=== PATIENT | male | born 1955 | race Caucasian/White ===

== ENCOUNTER 2020-10-24 01:54 | Inpatient (IN) | payer OTHER ==
[2020-10-24] MEDS ORDERED: SUBLIMAZE 100 MCG/2 ML IV ONE (02:15)
[2020-10-24] MEDS ORDERED: Zofran 4 MG/2 ML VIAL IV ONE (02:15)
[2020-10-24] MEDS ORDERED: Zofran 4 MG/2 ML VIAL ONE (02:19)
[2020-10-24] MEDS ORDERED: SUBLIMAZE 100 MCG/2 ML ONE ×4 (02:20→15:05)
[2020-10-24 02:23] LABS: Absolute Neutrophil Ct (ANC) 15.92 (1.4-6.9); BASOPHIL % 0.1 % (0.0-0.4); Basophil (Absolute #) 0.02 (0-0.4); Eosinophil % 0.1 % (0.00-5.0); Eosinophil (Absolute #) 0.01 (0-0.5); Hematocrit 42.5 % (42-50); Hemoglobin 14.3 gm/dl (12.5-18.0); Lymphocytes % 7.2 % (24.0-44.0); Mean Cell Volume 91.2 fl (78-100); Mean Corpuscular Hemoglobin 30.7 pg (26-32); Mean Corpuscular Hgb Concent. 33.6 g/dl (32-36); Monocyte (Absolute #) 2.05 (0.0-1.3); Monocytes % 10.6 % (0.0-12.0); Platelet Count 286 K/mm3 (150-450); Red Blood Count 4.66 M/mm3 (4.1-5.6); Red Cell Distribution Width 12.5 % (11.5-14.0); White Blood Count 19.4 K/mm3 (4.0-10.5)
--- NOTE | 2020-10-24 02:40 | ERPHSYRPT ---
- History of Present Illness Historian: patient Exam Limitations: no limitations Patient Subjective Stated Complaint: pt states, "I'm having terrible abdominal pain since Wednesday and it's just gotten worse. I thought maybe I was constipated but I've taken stuff and did not get alot out". Triage Nursing Assessment: pt c/o abd pain all the way across his belly, but initially started as pain to RLQ. Pt was very bloated on Wednesday but the pain has gotten much worse. Pt took suppositories, 2 small enemas and miralax with very little relief. Pt has just a few faint scattered bs. Abd is distended, slightly firm. Physician History: 65 yo wm w diffuse abdominal pain x 1.5 days.Pain is 10 on scale and sharp. Pt has had some nausea and hard stool but denies vomiting/fever/dysuria/hematuria/chest pain/fever/cough. He has never had this pain before and has only had his gallbladder out. Timing/Duration: other (36 hours) Quality: sharpness Abdominal Pain Onset Location: generalized abdomen Pain Radiation: no radiation Severity of Pain-Max: severe Severity of Pain-Current: severe Modifying Factors: Improves With: nothing Associated Symptoms: loss of appetite, nausea, vomiting, No back, No chest pain, No diaphoresis, No diarrhea, No fever/chills, No fatigue, No headache, No heartburn, No neck pain, No rash, No shortness of breath, No syncope, No weakness Previous symptoms: no prior history Allergies/Adverse Reactions: No Known Drug Allergies Allergy (Unverified 10/24/20 02:20) Home Medications: Atorvastatin Calcium 20 mg PO DAILY 10/24/20 [History] Esomeprazole Magnesium [Nexium] 40 mg PO DAILY 10/24/20 [History] Metformin HCl [Glucophage] 1,000 mg PO BID 10/24/20 [History] Naproxen Sodium [Aleve] 440 mg PO DAILY 10/24/20 [History] lisinopriL [Lisinopril] 20 mg PO DAILY 10/24/20 [History] Hx Tetanus, Diphtheria Vaccination/Date Given: Yes Hx Influenza Vaccination/Date Given: No Hx Pneumococcal Vaccination/Date Given: No Immunizations Up to Date: Yes Travel Risk - International Travel Have you traveled outside of the country in past 3 weeks: No - Coronavirus Screening Are you exhibiting any of the following symptoms?: No Close contact with a COVID-19 positive Pt in past 14-21 Days: No - Vaccine Status Have you recieved a Covid-19 vaccination: Yes [employer]: [employer] - Review of Systems Constitutional: No Symptoms Eyes: No Symptoms Ears, Nose, & Throat: No Symptoms Respiratory: No Symptoms Cardiac: No Symptoms Abdominal/Gastrointestinal: No Symptoms, Abdominal Pain, Nausea, Constipation Genitourinary Symptoms: No Symptoms Musculoskeletal: No Symptoms Skin: No Symptoms Neurological: No Symptoms Psychological: No Symptoms Endocrine: No Symptoms Hematologic/Lymphatic: No Symptoms Immunological/Allergic: Pollen Allergy - Past Medical History Pertinent Past Medical History: Yes Neurological History: No Pertinent History ENT History: No Pertinent History Cardiac History: Hypertension Respiratory History: No Pertinent History Endocrine Medical History: Diabetes Type II Musculoskeletal History: Fractures GI Medical History: GERD, Gallbladder Disease History: No Pertinent History Psycho-Social History: No Pertinent History Male Reproductive Disorders: No Pertinent History - Past Surgical History Past Surgical History: Yes Neuro Surgical History: No Pertinent History Cardiac: No Pertinent History Respiratory: No Pertinent History Gastrointestinal: Cholecystectomy Genitourinary: No Pertinent History Musculoskeletal: No Pertinent History Male Surgical History: No Pertinent History - Social History Smoking Status: Never smoker Exposure to second hand smoke: No Drug Use: none Patient Lives Alone: No Significant Family History: no pertinent family hx - Nursing Vital Signs Nursing Vital Signs: Initial Vital Signs Temperature 97.8 F 10/24/20 02:00 Pulse Rate 86 10/24/20 02:00 Respiratory Rate 20 10/24/20 02:00 Blood Pressure 180/103 10/24/20 02:00 O2 Sat by Pulse Oximetry 96 10/24/20 02:00 Pain Scale Pain Intensity 4 - Physical Exam SpO2: 96 Ordered Tests: Active Orders 24 hr Category Date Time Status Bedrest ROUTINE Activity 10/24/20 06:43 Active Code Status Order ROUTINE Care 10/24/20 06:43 Active EKG-ER Only STAT Care 10/24/20 02:13 Active IV Care Q6H Care 10/24/20 06:43 Active IV Insertion STAT Care 10/24/20 02:[address] in Observation ROUTINE Care 10/24/20 06:43 Active Vital Signs Q4H Care 10/24/20 06:42 Active NPO Diet 10/24/20 06:43 Active ABDOMEN AND PELVIS W CONTRAST [CT] Stat Exams 10/24/20 03:10 Taken AMYLASE Stat Lab 10/24/20 02:19 Completed CBC W DIFF Stat Lab 10/24/20 02:19 Completed CMP Stat Lab 10/24/20 02:19 Completed LIPASE Stat Lab 10/24/20 02:19 Completed TROPONIN Q3H Lab 10/24/20 02:19 Completed UA W/RFX UR CULTURE Stat Lab 10/24/20 03:39 Completed Oxygen Nasal Cannula 2 lpm RT 10/24/20 06:42 Active Transfer Order Routine Transfer 10/24/20 Ordered Medication Summary Generic Name Dose Route Start Last Admin Trade Name Freq PRN Reason Stop Dose Admin Hydromorphone HCl 0.5 mg 10/24/20 06:42 Hydromorphone 1 Mg/Ml Injection IV 10/29/20 06:41 Q1H PRN PRN PAIN Piperacillin Sod/Tazobactam 100 mls @ 200 mls/hr 10/24/20 06:29 10/24/20 06:36 Sod 3.375 gm/ Sodium Chloride IV 10/24/20 06:58 200 mls/hr STAT ONE Administration Sodium Chloride 1,000 mls @ 100 mls/hr 10/24/20 06:45 Sodium Chloride 0.9% 1000 Ml IV 11/23/20 06:44 .Q10H ANASTACIA Ondansetron HCl 4 mg 10/24/20 06:42 Zofran 4 Mg/2 Ml Vial IV 11/23/20 06:41 Q6H PRN PRN NAUSEA/VOMITING Pantoprazole Sodium 40 mg 10/24/20 10:00 Protonix 40 Mg Iv IV 11/23/20 09:59 Q24H10 ANASTACIA Discontinued Medications Generic Name Dose Route Start Last Admin Trade Name Freq PRN Reason Stop Dose Admin Fentanyl Citrate 50 mcg 10/24/20 02:15 10/24/20 02:24 Sublimaze 100 Mcg/2 Ml IV 10/24/20 02:16 50 mcg STAT ONE Administration Fentanyl Citrate Confirm 10/24/20 02:20 Sublimaze 100 Mcg/2 Ml Administered 10/24/20 02:21 Dose 100 mcg .ROUTE .STK-MED ONE Hydromorphone HCl 1 mg 10/24/20 03:02 10/24/20 03:07 Hydromorphone 1 Mg/Ml Injection IV 10/24/20 03:03 1 mg STAT ONE Administration Hydromorphone HCl Confirm 10/24/20 03:05 Hydromorphone 1 Mg/Ml Injection Administered 10/24/20 03:06 Dose 1 mg .ROUTE .STK-MED ONE Sodium Chloride Confirm 10/24/20 06:31 Sodium Chloride 100ml Mini-Bag Plus Administered 10/24/20 06:32 Dose 100 mls @ ud IV .STK-MED ONE Ondansetron HCl 4 mg 10/24/20 02:15 10/24/20 02:24 Zofran 4 Mg/2 Ml Vial IV 10/24/20 02:16 4 mg STAT ONE Administration Ondansetron HCl Confirm 10/24/20 02:19 Zofran 4 Mg/2 Ml Vial Administered 10/24/20 02:20 Dose 4 mg .ROUTE .STK-MED ONE Piperacillin Sod/Tazobactam Sod Confirm 10/24/20 06:31 Zosyn 3.375 Gm Vial Administered 10/24/20 06:32 Dose 3.375 gm IV .STK-MED ONE Lab/Rad Data: Laboratory Result Diagrams 10/24/20 02:19 10/24/20 02:19 Laboratory Results 10/24/20 10/24/20 10/24/20 Range/Units 03:39 02:19 02:19 WBC (4.0-10.5) K/mm3 RBC (4.1-5.6) M/mm3 Hgb (12.5-18.0) gm/dl Hct (42-50) % MCV (78-100) fl MCH (26-32) pg MCHC (32-36) g/dl RDW (11.5-14.0) % Plt Count (150-450) K/mm3 MPV (7.5-11.0) fl Gran % (36.0-66.0) % Eos # (Auto) (0-0.5) Absolute Lymphs (auto) (1.0-4.6) Absolute Monos (auto) (0.0-1.3) Lymphocytes % (24.0-44.0) % Monocytes % (0.0-12.0) % Eosinophils % (0.00-5.0) % Basophils % (0.0-0.4) % Absolute Granulocytes (1.4-6.9) Basophils # (0-0.4) Sodium 134 L (137-145) mmol/L Potassium 3.7 (3.5-5.1) mmol/L Chloride 98 (98-107) mmol/L Carbon Dioxide 24 (22-30) mmol/L Anion Gap 15.6 H (5-15) MEQ/L BUN 14 (9-20) mg/dL Creatinine 0.71 (0.66-1.25) mg/dL Estimated GFR > 60.0 ML/MIN Glucose 256 H (74-106) mg/dL Calcium 9.4 (8.4-10.2) mg/dL Total Bilirubin 1.00 (0.2-1.3) mg/dL AST 20 (17-59) U/L ALT 19 (0-50) U/L Alkaline Phosphatase 73 (38-126) U/L Troponin I < 0.012 (0.000-0.034) ng/mL Serum Total Protein 7.6 (6.3-8.2) g/dL Albumin 4.5 (3.5-5.0) g/dL Amylase 65 (30-110) U/L Lipase 89 (23-300) U/L Urine Color YELLOW (YELLOW) Urine Appearance SLIGHTLY CLOUDY (CLEAR) Urine pH 5.0 (5-6) Ur Specific [place] 1.037 (1.005-1.025) Urine Protein 30 (Negative) Urine Ketones MODERATE (NEGATIVE) Urine Blood NEGATIVE (0-5) Andrey/ul Urine Nitrite NEGATIVE (NEGATIVE) Urine Bilirubin NEGATIVE (NEGATIVE) Urine Urobilinogen NEGATIVE (0-1) mg/dL Ur Leukocyte Esterase NEGATIVE (NEGATIVE) Urine WBC (Auto) 3-5 (0-5) /HPF Urine RBC (Auto) NONE (0-2) /HPF U Epithel Cells (Auto) NONE (FEW) /HPF Urine Bacteria (Auto) NONE SEEN (NEGATIVE) /HPF Urine Mucus (Auto) MODERATE (NEGATIVE) /HPF Urine Culture Reflexed NO (NO) Urine Glucose >=500 (NEGATIVE) mg/dL 10/24/20 Range/Units 02:19 WBC 19.4 H (4.0-10.5) K/mm3 RBC 4.66 (4.1-5.6) M/mm3 Hgb 14.3 (12.5-18.0) gm/dl Hct 42.5 (42-50) % MCV 91.2 (78-100) fl MCH 30.7 (26-32) pg MCHC 33.6 (32-36) g/dl RDW 12.5 (11.5-14.0) % Plt Count 286 (150-450) K/mm3 MPV 10.0 (7.5-11.0) fl Gran % 82.0 H (36.0-66.0) % Eos # (Auto) 0.01 (0-0.5) Absolute Lymphs (auto) 1.40 (1.0-4.6) Absolute Monos (auto) 2.05 H (0.0-1.3) Lymphocytes % 7.2 L (24.0-44.0) % Monocytes % 10.6 (0.0-12.0) % Eosinophils % 0.1 (0.00-5.0) % Basophils % 0.1 (0.0-0.4) % Absolute Granulocytes 15.92 H (1.4-6.9) Basophils # 0.02 (0-0.4) Sodium (137-145) mmol/L Potassium (3.5-5.1) mmol/L Chloride (98-107) mmol/L Carbon Dioxide (22-30) mmol/L Anion Gap (5-15) MEQ/L BUN (9-20) mg/dL Creatinine (0.66-1.25) mg/dL Estimated GFR ML/MIN Glucose (74-106) mg/dL Calcium (8.4-10.2) mg/dL Total Bilirubin (0.2-1.3) mg/dL AST (17-59) U/L ALT (0-50) U/L Alkaline Phosphatase (38-126) U/L Troponin I (0.000-0.034) ng/mL Serum Total Protein (6.3-8.2) g/dL Albumin (3.5-5.0) g/dL Amylase (30-110) U/L Lipase (23-300) U/L Urine Color (YELLOW) Urine Appearance (CLEAR) Urine pH (5-6) Ur Specific [place] (1.005-1.025) Urine Protein (Negative) Urine Ketones (NEGATIVE) Urine Blood (0-5) Andrey/ul Urine Nitrite (NEGATIVE) Urine Bilirubin (NEGATIVE) Urine Urobilinogen (0-1) mg/dL Ur Leukocyte Esterase (NEGATIVE) Urine WBC (Auto) (0-5) /HPF Urine RBC (Auto) (0-2) /HPF U Epithel Cells (Auto) (FEW) /HPF Urine Bacteria (Auto) (NEGATIVE) /HPF Urine Mucus (Auto) (NEGATIVE) /HPF Urine Culture Reflexed (NO) Urine Glucose (NEGATIVE) mg/dL - Progress Progress Note: 10/24/20 06:[address] Avilez to Hospitalist 3.375mg IV Zosyn 10/24/20 06:38 10/24/20 06:39 Dr. Wu accepted admit [id number]/4mg IV Zofran w improvement in pain Dilaudid 1mg IV Discussed with DrZakiya: Angel Barrientos Counseled pt/family regarding: lab results, diagnosis, rad results - Departure Departure Disposition: Observation Clinical Impression: Acute appendicitis Condition: Stable Critical Care Time: No Referrals: MAREK WU MD [Primary Care Provider] -
[2020-10-24 02:42] LABS: ALBUMIN 4.5 g/dL (3.5-5.0); ALKALINE PHOSPHATASE 73 U/L (38-126); AMYLASE 65 U/L (30-110); ANION GAP 15.6 MEQ/L (5-15); BLOOD UREA NITROGEN 14 mg/dL (9-20); CHLORIDE 98 mmol/L (98-107); Calcium 9.4 mg/dL (8.4-10.2); Carbon Dioxide 24 mmol/L (22-30); Creatinine 1 0.71 mg/dL (0.66-1.25); EST GLOMERULAR FILTRATION RATE > 60.0 ML/MIN; Glucose 256 mg/dL (74-106); LIPASE 89 U/L (23-300); Potassium 3.7 mmol/L (3.5-5.1); SGOT/AST 20 U/L (17-59); SGPT/ALT 19 U/L (0-50); SODIUM 134 mmol/L (137-145); Total Protein 7.6 g/dL (6.3-8.2)
[2020-10-24] MEDS ORDERED: Hydromorphone 1 mg/ml Injection IV ONE ×2 (03:02→07:13)
[2020-10-24] MEDS ORDERED: Hydromorphone 1 mg/ml Injection ONE (03:05)
[2020-10-24 03:48] LABS: Appearance SLIGHTLY CLOUDY (CLEAR); Bilirubin NEGATIVE (NEGATIVE); Blood NEGATIVE Ery/ul (0-5); Glucose >=500 mg/dL (NEGATIVE); Ketones MODERATE (NEGATIVE); Leukocyte Esterase NEGATIVE (NEGATIVE); Mucus MODERATE /HPF (NEGATIVE); Nitrite NEGATIVE (NEGATIVE); Protein,Urine Dip 30 (Negative); Specific Gravity 1.037 (1.005-1.025); Urobilinogen NEGATIVE mg/dL (0-1)
[2020-10-24 03:58] LABS: Bacteria NONE SEEN /HPF (NEGATIVE)
[2020-10-24] MEDS ORDERED: Zosyn 3.375 GM Vial 3.375 GM in Sodium Chloride 100ML MINI-BAG PLUS 100 ML IV ONE (06:29)
[2020-10-24] MEDS ORDERED: Zosyn 3.375 GM Vial IV ONE (06:31)
[2020-10-24] MEDS ORDERED: Sodium Chloride 100ML MINI-BAG PLUS 100 ML IV ONE (06:31)
[2020-10-24] MEDS ORDERED: Sodium Chloride 0.9% 1000 ML 1,000 ML IV SCH (06:45)
[2020-10-24 08:02] LABS: INFLUENZA A NEGATIVE (NEGATIVE); INFLUENZA B NEGATIVE (NEGATIVE); RESPIRATORY SYNCTIAL VIRUS NEGATIVE (Negative)
[2020-10-24] MEDS: Hydromorphone 1 mg/ml Injection IV PRN ×3 (09:32→23:17)
[2020-10-24] MEDS: PROTONIX 40 MG IV IV SCH (09:35)
--- NOTE | 2020-10-24 09:55 | XRAY ---
Indication: Right lower quadrant pain. Elevated WBC. Multiple contiguous axial images obtained through the abdomen and pelvis using 77 cc Isovue 370 contrast. Comparison: None Lung bases demonstrates moderate subsegmental atelectasis/scarring bilaterally. Heart borderline enlarged. Moderate size hiatal hernia. Noncontrasted stomach and bowel loops appear nonobstructed. Abnormally distended appendix up to 2.5 cm in diameter with peripancreatic stranding favoring acute appendicitis. Incidental 1.4 cm appendicolith. Tiny right perihepatic, paracolic, and pelvic free fluid presumed reactive. No walled off fluid collection or free air. Previous cholecystectomy. Small 1 cm left upper renal cyst. Enlarged prostate gland. Remaining liver, pancreas, spleen, adrenal glands, kidneys, ureters, and bladder are unremarkable. Mild scattered aortoiliac calcifications. No AAA or pathologic retroperitoneal lymphadenopathy. Osseous structures intact with mild multilevel thoracolumbar degenerative spondylosis. Impression: 1. CT findings as detailed favoring acute appendicitis. Tiny reactive free fluid but no walled off fluid collection or free air. 2. Incidental hiatal hernia, left renal cyst, enlarged prostate gland, and chronic bony findings. Comment: Preliminary interpretation was made by [facility]. No critical discrepancy.
[2020-10-24] MEDS ORDERED: MEFOXIN 2 GM PREMIX** 2 GM/50 ML ML IV SCH (11:00)
[2020-10-24] MEDS: HUMALOG SQ PRN ×2 (11:24→20:41)
[2020-10-24] MEDS: Sodium Chloride 0.9% 1000 ML 1,000 ML IV SCH ×2 (11:41→16:20)
[2020-10-24] MEDS ORDERED: DIPRIVAN 200 MG/20 ML IV ONE (12:03)
[2020-10-24] MEDS ORDERED: Versed 2 MG/2 ML Injection ONE (12:03)
[2020-10-24] MEDS ORDERED: Quelicin Fliptop 200 MG/10 ML ONE (12:07)
[2020-10-24] MEDS: HOLD METFORMIN PRODUCTS FOR 48 HOURS MC SCH (12:26)
[2020-10-24] MEDS: Zestril 20 MG PO SCH (12:27)
--- NOTE | 2020-10-24 12:29 | PCM.HP ---
History of Present Illness - Chief Complaint Chief Complaint: Appendisitis History of Present Illness: is a 65 year old male who presented to the ER this morning, he reports onset of abdominal pain 2 days ago, felt distended and constipated so tried an enema with some results but his abdominal pain has progressed and worsened, there has been no vomiting, no fever, no diarrhea or hematochezia. His pain in the abdomen is diffuse but worst in the RLQ. - Review of Systems Constitutional: No Fever, No Chills Respiratory: No Cough, No Short Of Breath Cardiac: No Chest Pain, No Edema, No Syncope Abdominal/Gastrointestinal: Abdominal Pain Genitourinary Symptoms: No Dysuria All Other Systems: Reviewed and Negative Medications & Allergies Home Medications: Home Medication List Atorvastatin Calcium 20 mg PO DAILY 10/24/20 [History Confirmed 10/24/20] Esomeprazole Magnesium [Nexium] 40 mg PO DAILY 10/24/20 [History Confirmed 10/24/20] Metformin HCl [Glucophage] 1,000 mg PO BID 10/24/20 [History Confirmed 10/24/20] Naproxen Sodium [Aleve] 440 mg PO BID 10/24/20 [History Confirmed 10/24/20] lisinopriL [Lisinopril] 20 mg PO DAILY 10/24/20 [History Confirmed 10/24/20] Allergies/Adverse Reactions: Allergies Allergy/AdvReac Type Severity Reaction Status Date / Time No Known Drug Allergies Allergy Unverified 10/24/20 09:03 - Past Medical History Past Medical History: Yes Neurological History: No Pertinent History ENT History: No Pertinent History Cardiac History: Hypertension Respiratory History: No Pertinent History Endocrine Medical History: Diabetes Type II Musculoskelatal History: Fractures GI Medical History: GERD, Gallbladder Disease History: No Pertinent History Pyscho-Social History: No Pertinent History Male Reproductive Disorders: No Pertinent History - Past Surgical History Past Surgical History: Yes Neuro Surgical History: No Pertinent History Cardiac History: No Pertinent History Respiratory Surgery: No Pertinent History GI Surgical History: Cholecystectomy Genitourinary Surgical Hx: No Pertinent History Musculskeletal Surgical Hx: No Pertinent History Male Surgical History: No Pertinent History - Social History Smoking Status: Never smoker Exposure to second hand smoke: No Alcohol: Rarely Drug Use: none Significant Family History: no pertinent family hx - Physical Exam Vital Signs: Vital Signs - 24 hr Temp Pulse Resp BP BP Pulse Ox 05/20/21 11:25 98.9 F 101 H 20 143/78 93 L 10/24/20 11:00 98.9 F 101 H 14 143/78 93 L 10/24/20 09:28 98.9 F 101 H 20 143/78 93 L 10/24/20 08:55 98.5 F 97 H 20 136/82 96 10/24/20 07:18 107 H 16 149/88 95 10/24/20 07:00 99.1 F 105 H 16 165/92 96 10/24/20 06:49 96 10/24/20 06:16 105 H 18 165/92 93 L 10/24/20 04:00 84 18 142/80 95 10/24/20 03:00 82 18 172/93 95 10/24/20 02:00 97.8 F 86 20 180/103 96 General Appearance: no apparent distress Neurologic Exam: alert, oriented x 3, cooperative, normal mood/affect, nml cerebellar function, nml station & gait, sensation nml, No motor deficits Respiratory Exam: normal breath sounds, lungs clear, No respiratory distress Cardiovascular Exam: regular rate/rhythm, normal heart sounds, normal peripheral pulses Gastrointestinal/Abdomen Exam: tenderness, distention, guarding Extremity Exam: normal inspection, normal range of motion, pelvis stable Skin Exam: normal color, warm, dry, No rash Results - Labs Lab/Micro Results: Lab Results-Last 24 Hours 10/24/20 10/24/20 10/24/20 Range/Units 02:19 02:19 02:19 WBC 19.4 H (4.0-10.5) K/mm3 RBC 4.66 (4.1-5.6) M/mm3 Hgb 14.3 (12.5-18.0) gm/dl Hct 42.5 (42-50) % MCV 91.2 (78-100) fl MCH 30.7 (26-32) pg MCHC 33.6 (32-36) g/dl RDW 12.5 (11.5-14.0) % Plt Count 286 (150-450) K/mm3 MPV 10.0 (7.5-11.0) fl Gran % 82.0 H (36.0-66.0) % Eos # (Auto) 0.01 (0-0.5) Absolute Lymphs (auto) 1.40 (1.0-4.6) Absolute Monos (auto) 2.05 H (0.0-1.3) Lymphocytes % 7.2 L (24.0-44.0) % Monocytes % 10.6 (0.0-12.0) % Eosinophils % 0.1 (0.00-5.0) % Basophils % 0.1 (0.0-0.4) % Absolute Granulocytes 15.92 H (1.4-6.9) Basophils # 0.02 (0-0.4) Sodium 134 L (137-145) mmol/L Potassium 3.7 (3.5-5.1) mmol/L Chloride 98 (98-107) mmol/L Carbon Dioxide 24 (22-30) mmol/L Anion Gap 15.6 H (5-15) MEQ/L BUN 14 (9-20) mg/dL Creatinine 0.71 (0.66-1.25) mg/dL Estimated GFR > 60.0 ML/MIN Glucose 256 H (74-106) mg/dL Calcium 9.4 (8.4-10.2) mg/dL Total Bilirubin 1.00 (0.2-1.3) mg/dL AST 20 (17-59) U/L ALT 19 (0-50) U/L Alkaline Phosphatase 73 (38-126) U/L Troponin I < 0.012 (0.000-0.034) ng/mL Serum Total Protein 7.6 (6.3-8.2) g/dL Albumin 4.5 (3.5-5.0) g/dL Amylase 65 (30-110) U/L Lipase 89 (23-300) U/L Urine Color (YELLOW) Urine Appearance (CLEAR) Urine pH (5-6) Ur Specific [place] (1.005-1.025) Urine Protein (Negative) Urine Ketones (NEGATIVE) Urine Blood (0-5) Andrey/ul Urine Nitrite (NEGATIVE) Urine Bilirubin (NEGATIVE) Urine Urobilinogen (0-1) mg/dL Ur Leukocyte Esterase (NEGATIVE) Urine WBC (Auto) (0-5) /HPF Urine RBC (Auto) (0-2) /HPF U Epithel Cells (Auto) (FEW) /HPF Urine Bacteria (Auto) (NEGATIVE) /HPF Urine Mucus (Auto) (NEGATIVE) /HPF Urine Culture Reflexed (NO) Urine Glucose (NEGATIVE) mg/dL Influenza Type A Ag (NEGATIVE) Influenza Type B Ag (NEGATIVE) RSV (PCR) (Negative) SARS-CoV-2 (PCR) (NEGATIVE) 10/24/20 10/24/20 Range/Units 03:39 07:21 WBC (4.0-10.5) K/mm3 RBC (4.1-5.6) M/mm3 Hgb (12.5-18.0) gm/dl Hct (42-50) % MCV (78-100) fl MCH (26-32) pg MCHC (32-36) g/dl RDW (11.5-14.0) % Plt Count (150-450) K/mm3 MPV (7.5-11.0) fl Gran % (36.0-66.0) % Eos # (Auto) (0-0.5) Absolute Lymphs (auto) (1.0-4.6) Absolute Monos (auto) (0.0-1.3) Lymphocytes % (24.0-44.0) % Monocytes % (0.0-12.0) % Eosinophils % (0.00-5.0) % Basophils % (0.0-0.4) % Absolute Granulocytes (1.4-6.9) Basophils # (0-0.4) Sodium (137-145) mmol/L Potassium (3.5-5.1) mmol/L Chloride (98-107) mmol/L Carbon Dioxide (22-30) mmol/L Anion Gap (5-15) MEQ/L BUN (9-20) mg/dL Creatinine (0.66-1.25) mg/dL Estimated GFR ML/MIN Glucose (74-106) mg/dL Calcium (8.4-10.2) mg/dL Total Bilirubin (0.2-1.3) mg/dL AST (17-59) U/L ALT (0-50) U/L Alkaline Phosphatase (38-126) U/L Troponin I (0.000-0.034) ng/mL Serum Total Protein (6.3-8.2) g/dL Albumin (3.5-5.0) g/dL Amylase (30-110) U/L Lipase (23-300) U/L Urine Color YELLOW (YELLOW) Urine Appearance SLIGHTLY CLOUDY (CLEAR) Urine pH 5.0 (5-6) Ur Specific [place] 1.037 (1.005-1.025) Urine Protein 30 (Negative) Urine Ketones MODERATE (NEGATIVE) Urine Blood NEGATIVE (0-5) Andrey/ul Urine Nitrite NEGATIVE (NEGATIVE) Urine Bilirubin NEGATIVE (NEGATIVE) Urine Urobilinogen NEGATIVE (0-1) mg/dL Ur Leukocyte Esterase NEGATIVE (NEGATIVE) Urine WBC (Auto) 3-5 (0-5) /HPF Urine RBC (Auto) NONE (0-2) /HPF U Epithel Cells (Auto) NONE (FEW) /HPF Urine Bacteria (Auto) NONE SEEN (NEGATIVE) /HPF Urine Mucus (Auto) MODERATE (NEGATIVE) /HPF Urine Culture Reflexed NO (NO) Urine Glucose >=500 (NEGATIVE) mg/dL Influenza Type A Ag NEGATIVE (NEGATIVE) Influenza Type B Ag NEGATIVE (NEGATIVE) RSV (PCR) NEGATIVE (Negative) SARS-CoV-2 (PCR) NEGATIVE (NEGATIVE) - Radiology Impressions Radiology Exams & Impressions: Radiology Procedures Category Date Time Status ABDOMEN AND PELVIS W CONTRAST [CT] Stat Exams 10/24/20 03:10 Completed - Other Procedures and Tests Respiratory Therapy 10/24/20 06:42 Oxygen Nasal Cannula 2 lpm Assessment/Plan (1) Acute appendicitis Current Visit: Yes Status: Acute Assessment & Plan: given Dr German guerrero to take to surgery, based on 2 day history of pain, exam and review of labs and CT discussed possibility of perforation and several days of IV antibiotics with patient and his . Code(s): K35.80 - UNSPECIFIED ACUTE APPENDICITIS
[2020-10-24] MEDS ORDERED: OFIRMEV 100 ML IV ONE (13:00)
[2020-10-24] MEDS ORDERED: Sensorcaine 0.25% 10 ML ONE (13:47)
[2020-10-24] MEDS ORDERED: Zemuron 100 MG/10 ML ONE (14:27)
[2020-10-24] MEDS ORDERED: TRANDATE 20 MG/4 ML SYRINGE IV ONE (14:28)
[2020-10-24] MEDS ORDERED: BRIDION 200MG/2ML IV ONE (15:01)
[2020-10-24] MEDS: Zosyn 3.375 GM Vial 3.375 GM in Sodium Chloride 100ML MINI-BAG PLUS 100 ML IV SCH (17:25)
[2020-10-24] MEDS: Zofran 4 MG/2 ML VIAL IV PRN (19:31)
[2020-10-25] MEDS: Zosyn 3.375 GM Vial 3.375 GM in Sodium Chloride 100ML MINI-BAG PLUS 100 ML IV SCH ×5 (01:09→23:53)
[2020-10-25] MEDS: Hydromorphone 1 mg/ml Injection IV PRN ×9 (02:19→23:11)
[2020-10-25 05:31] LABS: Absolute Neutrophil Ct (ANC) 10.06 (1.4-6.9); BASOPHIL % 0.1 % (0.0-0.4); Basophil (Absolute #) 0.01 (0-0.4); Eosinophil (Absolute #) 0 (0-0.5); Hematocrit 38.5 % (42-50); Hemoglobin 12.3 gm/dl (12.5-18.0); Lymphocyte (Absolute #) 0.59 (1.0-4.6); Lymphocytes % 5.1 % (24.0-44.0); Mean Cell Volume 94.6 fl (78-100); Mean Corpuscular Hemoglobin 30.2 pg (26-32); Mean Corpuscular Hgb Concent. 31.9 g/dl (32-36); Mean Platelet Volume 10.1 fl (7.5-11.0); Monocyte (Absolute #) 0.96 (0.0-1.3); Monocytes % 8.3 % (0.0-12.0); Neutrophil % 86.5 % (36.0-66.0); Platelet Count 236 K/mm3 (150-450); Red Blood Count 4.07 M/mm3 (4.1-5.6); Red Cell Distribution Width 12.9 % (11.5-14.0); White Blood Count 11.6 K/mm3 (4.0-10.5)
[2020-10-25 05:37] LABS: ALBUMIN 3.3 g/dL (3.5-5.0); ALKALINE PHOSPHATASE 47 U/L (38-126); ANION GAP 10.6 MEQ/L (5-15); BLOOD UREA NITROGEN 21 mg/dL (9-20); CHLORIDE 103 mmol/L (98-107); Calcium 7.8 mg/dL (8.4-10.2); Carbon Dioxide 24 mmol/L (22-30); EST GLOMERULAR FILTRATION RATE > 60.0 ML/MIN; Glucose 209 mg/dL (74-106); Potassium 4.1 mmol/L (3.5-5.1); SGOT/AST 15 U/L (17-59); SGPT/ALT 13 U/L (0-50); SODIUM 134 mmol/L (137-145); Total Protein 6.1 g/dL (6.3-8.2)
[2020-10-25] MEDS: Zofran 4 MG/2 ML VIAL IV PRN ×3 (08:21→22:58)
--- NOTE | 2020-10-25 08:26 | PCM.NOTE ---
Date and Time: 10/25/20824 Subjective Assessment: patient is tolerating clear liquids, pain in the stomach is fairly well managed. no specific problems or concerns. Objective Exam General Appearance: no apparent distress Neurologic Exam: alert, oriented x 3 Wound Assessment: Skin/Wound Assessment Wound/Incision Assessment Start: 10/24/20 17:19 Text: Status: Active Freq: Q6H Protocol: Document 10/25/20 07:39 HOLLIE (Rec: 10/25/20 07:41 HOLLIE [id number]) Wound/Incision Assessment Right Upper Abdomen Wound Assessment Shift Assessment Wound Stage Non Pressure Wound Dressing Status Dry & Intact Drainage Amount None Packing Type Gauze Pads Comment surgical wound with dressing CDI and CRISTIAN drain with serosanguanous fluid Wound Photo Photo Taken No Respiratory Exam: normal breath sounds, lungs clear, No respiratory distress Cardiovascular Exam: regular rate/rhythm, normal heart sounds Gastrointestinal/Abdomen Exam: soft, other (dressing c/d/i, serosang fluid in CRISTIAN) OBJECTIVE DATA Vital Signs: Vital Signs - 24 hr Temp Pulse Resp BP Pulse Ox 10/25/20 07:53 97.8 F 92 H 24 153/82 94 L 10/25/20 03:40 98.6 F 93 H 18 131/77 94 L 10/24/20 23:59 97.7 F 93 H 23 130/74 93 L 10/24/20 19:55 97.9 F 94 H 19 115/59 94 L 10/24/20 18:45 98.2 F 93 H 24 159/74 94 L 10/24/20 17:57 100.1 F 88 14 128/66 95 10/24/20 17:15 99.7 F 91 H 16 137/71 95 10/24/20 16:47 100.3 F 10/24/20 16:45 100.4 F 92 H 14 123/62 93 L 10/24/20 16:30 99.9 F 89 131/75 94 L 10/24/20 16:15 98.4 F 93 H 132/76 94 L 10/24/20 11:25 98.9 F 101 H 20 143/78 93 L 10/24/20 11:00 98.9 F 101 H 14 143/78 93 L 10/24/20 09:28 98.9 F 101 H 20 143/78 93 L 10/24/20 08:55 98.5 F 97 H 20 136/82 96 Pain Assessment - Last Documented Pain Intensity 8 Pain Scale Used 0-10 Pain Scale Intake and Output: Intake & Output 10/22/20 10/23/20 10/24/20 10/25/20 11:59 11:59 11:59 11:59 Intake Total 0 2224 Output Total 1305 Balance 0 919 Weight 83.915 kg Lab Results: Lab Results-Last 24 Hours 10/24/20 10/24/20 10/25/20 Range/Units 15:42 20:35 05:00 WBC 11.6 H (4.0-10.5) K/mm3 RBC 4.07 L (4.1-5.6) M/mm3 Hgb 12.3 L (12.5-18.0) gm/dl Hct 38.5 L (42-50) % MCV 94.6 (78-100) fl MCH 30.2 (26-32) pg MCHC 31.9 L (32-36) g/dl RDW 12.9 (11.5-14.0) % Plt Count 236 (150-450) K/mm3 MPV 10.1 (7.5-11.0) fl Gran % 86.5 H (36.0-66.0) % Eos # (Auto) 0 (0-0.5) Absolute Lymphs (auto) 0.59 L (1.0-4.6) Absolute Monos (auto) 0.96 (0.0-1.3) Lymphocytes % 5.1 L (24.0-44.0) % Monocytes % 8.3 (0.0-12.0) % Eosinophils % 0.0 (0.00-5.0) % Basophils % 0.1 (0.0-0.4) % Absolute Granulocytes 10.06 H (1.4-6.9) Basophils # 0.01 (0-0.4) Sodium (137-145) mmol/L Potassium (3.5-5.1) mmol/L Chloride (98-107) mmol/L Carbon Dioxide (22-30) mmol/L Anion Gap (5-15) MEQ/L BUN (9-20) mg/dL Creatinine (0.66-1.25) mg/dL Estimated GFR ML/MIN Glucose (74-106) mg/dL POC Glucometer 223 H 230 H (74 to 106) mg/dL Calcium (8.4-10.2) mg/dL Total Bilirubin (0.2-1.3) mg/dL AST (17-59) U/L ALT (0-50) U/L Alkaline Phosphatase (38-126) U/L Serum Total Protein (6.3-8.2) g/dL Albumin (3.5-5.0) g/dL Slides for Path Review 10/25/20 10/25/20 Range/Units 05:00 07:08 WBC (4.0-10.5) K/mm3 RBC (4.1-5.6) M/mm3 Hgb (12.5-18.0) gm/dl Hct (42-50) % MCV (78-100) fl MCH (26-32) pg MCHC (32-36) g/dl RDW (11.5-14.0) % Plt Count (150-450) K/mm3 MPV (7.5-11.0) fl Gran % (36.0-66.0) % Eos # (Auto) (0-0.5) Absolute Lymphs (auto) (1.0-4.6) Absolute Monos (auto) (0.0-1.3) Lymphocytes % (24.0-44.0) % Monocytes % (0.0-12.0) % Eosinophils % (0.00-5.0) % Basophils % (0.0-0.4) % Absolute Granulocytes (1.4-6.9) Basophils # (0-0.4) Sodium 134 L (137-145) mmol/L Potassium 4.1 (3.5-5.1) mmol/L Chloride 103 (98-107) mmol/L Carbon Dioxide 24 (22-30) mmol/L Anion Gap 10.6 (5-15) MEQ/L BUN 21 H (9-20) mg/dL Creatinine 0.80 (0.66-1.25) mg/dL Estimated GFR > 60.0 ML/MIN Glucose 209 H (74-106) mg/dL POC Glucometer 189 H (74 to 106) mg/dL Calcium 7.8 L D (8.4-10.2) mg/dL Total Bilirubin 0.70 (0.2-1.3) mg/dL AST 15 L (17-59) U/L ALT 13 (0-50) U/L Alkaline Phosphatase 47 (38-126) U/L Serum Total Protein 6.1 L (6.3-8.2) g/dL Albumin 3.3 L (3.5-5.0) g/dL Slides for Path Review Radiology Exams: Radiology Procedures Category Date Time Status ABDOMEN AND PELVIS W CONTRAST [CT] Stat Exams 10/24/20 03:10 Completed Assessment/Plan (1) Acute appendicitis with rupture Current Visit: Yes Status: Acute Assessment & Plan: on zosyn, afebrile this am and wbc trending down. continue current management with IV abx Code(s): K35.32 - ACUTE APPENDICITIS WITH PERF AND LOC PERITONITIS, W/O ABSCS
[2020-10-25] MEDS: HOLD METFORMIN PRODUCTS FOR 48 HOURS MC SCH (09:27)
[2020-10-25] MEDS: Zestril 20 MG PO SCH (09:30)
[2020-10-25] MEDS: PROTONIX 40 MG IV IV SCH (09:30)
[2020-10-25] MEDS: Sodium Chloride 0.9% 1000 ML 1,000 ML IV SCH ×2 (12:25→23:11)
--- NOTE | 2020-10-25 12:51 | OP ---
SURGERY DATE/TIME: 10/24/2020 1351 PREOPERATIVE DIAGNOSIS: Acute appendicitis. POSTOPERATIVE DIAGNOSIS: Acute appendicitis with rupture, abscess both in the right gutter above the liver and in the right gutter down below in the pelvis. PROCEDURE: Laparoscopic appendectomy and evacuation of intra-abdominal abscesses. SURGEON: German Friedman M.D. ANESTHESIA: General. COMPLICATIONS: None. CONDITION: Stable. INDICATION: The patient has about a four day course of appendicitis. He is seen and examined. He looked quite ashen. DESCRIPTION OF PROCEDURE: He was taken to surgery. General anesthetic. Routine prep and drape. Veress needle inserted. Opening pressure of 1 and insufflating pressure 14. Two 5's laterally, 12 at the umbilicus. Good visualization. It was matted in a ball. It was slightly retrocecal. It was only about 2 inches long. It was curled up. Densely matted to the cecum and densely matted to one loop of small bowel. This area was actually palpable preoperatively. There was abscess down the entire right gutter. It was broken up. It was suctioned in the pelvis. It was suctioned above the liver. It was generously irrigated. The appendix was able to be mobilized. Base of the appendix identified and stapled and the appendix placed in a condom bag and removed. One final irrigation followed by drain placement, drain directed towards the pelvis. Anterior abdominal wall 12 port closed with 0 Vicryl. Skin closed with 4-0 Vicryl and Steri-Strips. Drain secured. The patient tolerated the procedure satisfactorily.
[2020-10-25] MEDS: HUMALOG SQ PRN (22:58)
[2020-10-26] MEDS: Hydromorphone 1 mg/ml Injection IV PRN ×6 (01:41→21:14)
[2020-10-26] MEDS: Zosyn 3.375 GM Vial 3.375 GM in Sodium Chloride 100ML MINI-BAG PLUS 100 ML IV SCH ×4 (05:38→23:38)
[2020-10-26 07:05] LABS: Absolute Neutrophil Ct (ANC) 11.95 (1.4-6.9); BASOPHIL % 0.1 % (0.0-0.4); Basophil (Absolute #) 0.01 (0-0.4); Eosinophil (Absolute #) 0 (0-0.5); Hematocrit 39.7 % (42-50); Hemoglobin 12.5 gm/dl (12.5-18.0); Lymphocyte (Absolute #) 0.46 (1.0-4.6); Lymphocytes % 3.4 % (24.0-44.0); Mean Cell Volume 95.4 fl (78-100); Mean Corpuscular Hgb Concent. 31.5 g/dl (32-36); Mean Platelet Volume 10.4 fl (7.5-11.0); Monocyte (Absolute #) 1.09 (0.0-1.3); Monocytes % 8.1 % (0.0-12.0); Neutrophil % 88.4 % (36.0-66.0); Platelet Count 287 K/mm3 (150-450); Red Blood Count 4.16 M/mm3 (4.1-5.6); White Blood Count 13.5 K/mm3 (4.0-10.5)
[2020-10-26 07:23] LABS: ALKALINE PHOSPHATASE 55 U/L (38-126); ANION GAP 10.7 MEQ/L (5-15); BLOOD UREA NITROGEN 30 mg/dL (9-20); CHLORIDE 103 mmol/L (98-107); Calcium 7.8 mg/dL (8.4-10.2); Carbon Dioxide 23 mmol/L (22-30); EST GLOMERULAR FILTRATION RATE > 60.0 ML/MIN; Glucose 228 mg/dL (74-106); MAGNESIUM 1.8 mg/dL (1.6-2.3); Potassium 4.2 mmol/L (3.5-5.1); SGOT/AST 15 U/L (17-59); SGPT/ALT 11 U/L (0-50); SODIUM 133 mmol/L (137-145); Total Protein 5.5 g/dL (6.3-8.2)
[2020-10-26 08:32] LABS: Slide Review 1 YES
[2020-10-26] MEDS: HUMALOG SQ PRN ×3 (09:28→22:24)
[2020-10-26] MEDS: Zofran 4 MG/2 ML VIAL IV PRN ×2 (09:31→17:04)
[2020-10-26] MEDS ORDERED: TORAdol 30 mg Injection IV PRN (09:59)
[2020-10-26] MEDS: PROTONIX 40 MG IV IV SCH (11:20)
[2020-10-26] MEDS: Zestril 20 MG PO SCH (11:20)
[2020-10-26] MEDS: TORAdol 30 mg Injection IV SCH ×3 (11:21→23:39)
[2020-10-26] MEDS: Sodium Chloride 0.9% 1000 ML 1,000 ML IV SCH ×2 (11:31→22:39)
[2020-10-27] MEDS: Hydromorphone 1 mg/ml Injection IV PRN ×4 (03:02→22:09)
[2020-10-27] MEDS: TORAdol 30 mg Injection IV SCH (05:31)
[2020-10-27] MEDS: Zosyn 3.375 GM Vial 3.375 GM in Sodium Chloride 100ML MINI-BAG PLUS 100 ML IV SCH ×4 (05:32→23:25)
[2020-10-27] MEDS: Sodium Chloride 0.9% 1000 ML 1,000 ML IV SCH ×2 (10:56→22:08)
[2020-10-27] MEDS: PROTONIX 40 MG IV IV SCH (10:58)
[2020-10-27] MEDS: Zestril 20 MG PO SCH (10:58)
[2020-10-27 11:11] LABS: Absolute Neutrophil Ct (ANC) 9.04 (1.4-6.9); BASOPHIL % 0.1 % (0.0-0.4); Basophil (Absolute #) 0.01 (0-0.4); Eosinophil % 0.8 % (0.00-5.0); Eosinophil (Absolute #) 0.09 (0-0.5); Hematocrit 36.6 % (42-50); Hemoglobin 11.6 gm/dl (12.5-18.0); Lymphocyte (Absolute #) 0.55 (1.0-4.6); Lymphocytes % 5.1 % (24.0-44.0); Mean Cell Volume 95.3 fl (78-100); Mean Corpuscular Hemoglobin 30.2 pg (26-32); Mean Corpuscular Hgb Concent. 31.7 g/dl (32-36); Mean Platelet Volume 9.7 fl (7.5-11.0); Monocyte (Absolute #) 1.02 (0.0-1.3); Monocytes % 9.5 % (0.0-12.0); Neutrophil % 84.5 % (36.0-66.0); Platelet Count 327 K/mm3 (150-450); Red Blood Count 3.84 M/mm3 (4.1-5.6); White Blood Count 10.7 K/mm3 (4.0-10.5)
[2020-10-27 11:28] LABS: ALBUMIN 2.9 g/dL (3.5-5.0); ALKALINE PHOSPHATASE 58 U/L (38-126); ANION GAP 7.9 MEQ/L (5-15); BLOOD UREA NITROGEN 32 mg/dL (9-20); CHLORIDE 105 mmol/L (98-107); Calcium 8.3 mg/dL (8.4-10.2); Carbon Dioxide 25 mmol/L (22-30); Creatinine 1 0.87 mg/dL (0.66-1.25); EST GLOMERULAR FILTRATION RATE > 60.0 ML/MIN; Glucose 192 mg/dL (74-106); Potassium 4.1 mmol/L (3.5-5.1); SGOT/AST 22 U/L (17-59); SGPT/ALT 15 U/L (0-50); SODIUM 135 mmol/L (137-145); Total Protein 5.5 g/dL (6.3-8.2)
[2020-10-27] MEDS: HUMALOG SQ PRN ×2 (12:25→18:30)
[2020-10-27] MEDS: TORAdol 30 mg Injection IV PRN ×2 (13:24→19:54)
[2020-10-27 14:48] LABS: Slide Review 1 YES
[2020-10-28] MEDS: TORAdol 30 mg Injection IV PRN (03:26)
[2020-10-28] MEDS: Zosyn 3.375 GM Vial 3.375 GM in Sodium Chloride 100ML MINI-BAG PLUS 100 ML IV SCH ×4 (06:04→23:08)
--- NOTE | 2020-10-28 08:33 | PCM.NOTE ---
Date and Time: 10/28/20831 Subjective Assessment: patient tolerating clears, started passing flatus yesterday. he is off oxygen, overall improving. he is feeling hungry Objective Exam General Appearance: no apparent distress, alert Skin Exam: normal color, warm, dry Wound Assessment: Skin/Wound Assessment Wound/Incision Assessment Start: 10/24/20 17:19 Text: Status: Active Freq: Q6H Protocol: Document 10/28/20 02:00 EG (Rec: 10/28/20 03:21 EG [id number]) Wound/Incision Assessment Right Upper Abdomen Wound Assessment Shift Assessment Wound Stage Non Pressure Wound Dressing Status Changed Drainage Amount Moderate Drainage Description Serosanguineous Primary Dressing Absorbant Pad Comment surgical wound with dressing and CRISTIAN drain with serosanguineous fluid, CRISTIAN site dressing CDI at this time . Will continue to monitor. Wound Photo Photo Taken No Respiratory Exam: normal breath sounds, lungs clear, No respiratory distress Gastrointestinal/Abdomen Exam: soft, other (dressing c/d/i, scant serous fluid in CRISTIAN, bowel sounds present), No tenderness Extremity Exam: normal inspection, normal range of motion OBJECTIVE DATA Vital Signs: Vital Signs - 24 hr Temp Pulse Resp BP Pulse Ox 10/28/20 07:56 97.9 F 78 20 162/78 92 L 10/28/20 07:44 92 L 10/28/20 04:00 98.3 F 84 24 147/74 93 L 10/28/20 00:00 97.9 F 76 16 139/73 91 L 10/27/20 20:25 90 L 10/27/20 20:00 98.1 F 87 18 151/78 92 L 10/27/20 16:00 98.4 F 87 22 165/81 91 L 10/27/20 12:00 98.1 F 92 H 25 H 156/74 90 L 10/27/20 10:47 92 L Pain Assessment - Last Documented Pain Intensity 7 Pain Scale Used 0-10 Pain Scale Intake and Output: Intake & Output 10/25/20 10/26/20 10/27/20 10/28/20 11:59 11:59 11:59 11:59 Intake Total 2344 3380 3167 2630 Output Total 1505 1420 1615 1380 Balance 839 1960 1552 1250 Lab Results: Lab Results-Last 24 Hours 05/10/27/20 10/27/20 Range/Units 10:20 10:20 11:44 WBC 10.7 H (4.0-10.5) K/mm3 RBC 3.84 L (4.1-5.6) M/mm3 Hgb 11.6 L (12.5-18.0) gm/dl Hct 36.6 L (42-50) % MCV 95.3 (78-100) fl MCH 30.2 (26-32) pg MCHC 31.7 L (32-36) g/dl RDW 13.0 (11.5-14.0) % Plt Count 327 (150-450) K/mm3 MPV 9.7 (7.5-11.0) fl Gran % 84.5 H (36.0-66.0) % Eos # (Auto) 0.09 (0-0.5) Absolute Lymphs (auto) 0.55 L (1.0-4.6) Absolute Monos (auto) 1.02 (0.0-1.3) Lymphocytes % 5.1 L (24.0-44.0) % Monocytes % 9.5 (0.0-12.0) % Eosinophils % 0.8 (0.00-5.0) % Basophils % 0.1 (0.0-0.4) % Absolute Granulocytes 9.04 H (1.4-6.9) Basophils # 0.01 (0-0.4) Sodium 135 L (137-145) mmol/L Potassium 4.1 (3.5-5.1) mmol/L Chloride 105 (98-107) mmol/L Carbon Dioxide 25 (22-30) mmol/L Anion Gap 7.9 (5-15) MEQ/L BUN 32 H (9-20) mg/dL Creatinine 0.87 (0.66-1.25) mg/dL Estimated GFR > 60.0 ML/MIN Glucose 192 H (74-106) mg/dL POC Glucometer 162 H (74 to 106) mg/dL Calcium 8.3 L (8.4-10.2) mg/dL Total Bilirubin 0.60 (0.2-1.3) mg/dL AST 22 (17-59) U/L ALT 15 (0-50) U/L Alkaline Phosphatase 58 (38-126) U/L Serum Total Protein 5.5 L (6.3-8.2) g/dL Albumin 2.9 L (3.5-5.0) g/dL Slides for Path Review YES 10/27/20 10/27/20 10/28/20 Range/Units 16:30 21:41 07:22 WBC (4.0-10.5) K/mm3 RBC (4.1-5.6) M/mm3 Hgb (12.5-18.0) gm/dl Hct (42-50) % MCV (78-100) fl MCH (26-32) pg MCHC (32-36) g/dl RDW (11.5-14.0) % Plt Count (150-450) K/mm3 MPV (7.5-11.0) fl Gran % (36.0-66.0) % Eos # (Auto) (0-0.5) Absolute Lymphs (auto) (1.0-4.6) Absolute Monos (auto) (0.0-1.3) Lymphocytes % (24.0-44.0) % Monocytes % (0.0-12.0) % Eosinophils % (0.00-5.0) % Basophils % (0.0-0.4) % Absolute Granulocytes (1.4-6.9) Basophils # (0-0.4) Sodium (137-145) mmol/L Potassium (3.5-5.1) mmol/L Chloride (98-107) mmol/L Carbon Dioxide (22-30) mmol/L Anion Gap (5-15) MEQ/L BUN (9-20) mg/dL Creatinine (0.66-1.25) mg/dL Estimated GFR ML/MIN Glucose (74-106) mg/dL POC Glucometer 151 H 131 H 155 H (74 to 106) mg/dL Calcium (8.4-10.2) mg/dL Total Bilirubin (0.2-1.3) mg/dL AST (17-59) U/L ALT (0-50) U/L Alkaline Phosphatase (38-126) U/L Serum Total Protein (6.3-8.2) g/dL Albumin (3.5-5.0) g/dL Slides for Path Review Multi-Disciplinary Progress Notes: Multi-Disciplinary Progress Notes 10/27/20 13:21 Respiratory Note by Mihaela Brewster DONE PER SELF. Initialized on 10/27/20 13:21 - END OF NOTE Assessment/Plan (1) Acute appendicitis with rupture Current Visit: Yes Status: Acute Assessment & Plan: doing well, on zosyn, tolerating clears and passing flatus. will advance diet if ok with surgery. Code(s): K35.32 - ACUTE APPENDICITIS WITH PERF AND LOC PERITONITIS, W/O ABSCS
[2020-10-28] MEDS: PROTONIX 40 MG IV IV SCH (09:19)
[2020-10-28] MEDS: Zestril 20 MG PO SCH (09:23)
[2020-10-28] MEDS: NORCO 5/325 MG PO PRN ×4 (09:23→23:31)
[2020-10-28] MEDS: HUMALOG SQ PRN (09:28)
[2020-10-28] MEDS: Sodium Chloride 0.9% 1000 ML 1,000 ML IV SCH ×2 (11:00→20:43)
[2020-10-29] MEDS: Zosyn 3.375 GM Vial 3.375 GM in Sodium Chloride 100ML MINI-BAG PLUS 100 ML IV SCH ×4 (05:20→23:48)
[2020-10-29 05:33] LABS: Hematocrit 32.3 % (42-50); Hemoglobin 10.4 gm/dl (12.5-18.0); Mean Cell Volume 94.7 fl (78-100); Mean Corpuscular Hemoglobin 30.5 pg (26-32); Mean Corpuscular Hgb Concent. 32.2 g/dl (32-36); Platelet Count 316 K/mm3 (150-450); Red Blood Count 3.41 M/mm3 (4.1-5.6); Red Cell Distribution Width 12.8 % (11.5-14.0); White Blood Count 8.5 K/mm3 (4.0-10.5)
[2020-10-29 06:14] LABS: ALBUMIN 2.7 g/dL (3.5-5.0); ALKALINE PHOSPHATASE 65 U/L (38-126); ANION GAP 10.6 MEQ/L (5-15); BLOOD UREA NITROGEN 17 mg/dL (9-20); CHLORIDE 109 mmol/L (98-107); Calcium 8.2 mg/dL (8.4-10.2); Carbon Dioxide 21 mmol/L (22-30); Creatinine 1 0.63 mg/dL (0.66-1.25); EST GLOMERULAR FILTRATION RATE > 60.0 ML/MIN; Glucose 175 mg/dL (74-106); Potassium 3.9 mmol/L (3.5-5.1); SGOT/AST 28 U/L (17-59); SGPT/ALT 21 U/L (0-50); SODIUM 137 mmol/L (137-145); Total Protein 5.2 g/dL (6.3-8.2)
[2020-10-29 07:08] LABS: ANISOCYTOSIS 1+; Eosinophil 1 % (0.00-3.0); Lymphocytes 11 % (24-44); Monocyte 7 % (0.0-12.0); Neutrophils 81 % (36.-66.); Platelet Estimate NORMAL (NORMAL); Total Cells Counted 100
[2020-10-29] MEDS: NORCO 5/325 MG PO PRN ×3 (07:44→20:38)
[2020-10-29] MEDS: HUMALOG SQ PRN ×3 (07:44→17:05)
[2020-10-29] MEDS: Sodium Chloride 0.9% 1000 ML 1,000 ML IV SCH (07:46)
[2020-10-29] MEDS: Zestril 20 MG PO SCH (09:53)
[2020-10-29] MEDS: PROTONIX 40 MG IV IV SCH (09:53)
--- NOTE | 2020-10-29 11:40 | PCM.NOTE ---
Date and Time: 10/29/20 1136 Subjective Assessment: Pt is feeling better this morning. Has been trying to hold off on pain meds. curretnly pain is 4/10. Amber full liquid diet. Passing flatus; no stool. - Review of Systems Constitutional: No Fever Abdominal/Gastrointestinal: Abdominal Pain Objective Exam General Appearance: mild distress (with moving), alert Neurologic Exam: oriented x 3, cooperative Skin Exam: normal color, warm, dry, No rash Wound Assessment: Skin/Wound Assessment Wound/Incision Assessment Start: 10/24/20 17:19 Text: Status: Active Freq: Q6H Protocol: Document 10/29/20 08:00 DS (Rec: 10/29/20 10:18 DS [id number]) Wound/Incision Assessment Right Upper Abdomen Wound Assessment Shift Assessment Wound Type Incision Wound Stage Non Pressure Wound Dressing Status Changed Drainage Amount Moderate Drainage Description Serosanguineous Primary Dressing Absorbant Pad Comment surgical wound with dressing and CRISTIAN drain with serosanguineous fluid, CRISTIAN site dressing changed and CDI at this time. Will continue to monitor. Wound Photo Photo Taken No Eye Exam: eyes nml inspection Ears, Nose, Throat Exam: moist mucous membranes Neck Exam: normal inspection Respiratory Exam: normal breath sounds, lungs clear, No crackles/rales, No rhonchi, No wheezing Cardiovascular Exam: regular rate/rhythm, normal heart sounds, No murmur Gastrointestinal/Abdomen Exam: soft, other (dressing with some serosanguinous drainage laterally. CRISTIAN drain in place with serosanguinous drainage.), No normal bowel sounds (hypoactive but present) OBJECTIVE DATA Vital Signs: Vital Signs - 24 hr Temp Pulse Resp BP Pulse Ox 10/29/20 08:00 98.7 F 75 18 177/83 93 L 10/29/20 03:46 98.4 F 68 16 168/79 96 10/28/20 23:29 98.3 F 73 24 148/69 95 10/28/20 19:56 90 L 10/28/20 19:55 99.0 F 81 24 165/81 92 L 10/28/20 16:00 98.1 F 81 20 158/69 92 L 10/28/20 11:58 97.7 F 77 22 170/68 94 L Pain Assessment - Last Documented Pain Intensity 4 Pain Scale Used 0-10 Pain Scale Intake and Output: Intake & Output 10/26/20 10/27/20 10/28/20 10/29/20 11:59 11:59 11:59 11:59 Intake Total 3380 3167 2630 1912 Output Total 1420 1615 1380 1375 Balance 1959 1552 1250 537 Weight 83.915 kg Lab Results: Lab Results-Last 24 Hours 10/28/20 10/28/20 10/29/20 Range/Units 16:07 20:15 05:09 WBC 8.5 (4.0-10.5) K/mm3 RBC 3.41 L (4.1-5.6) M/mm3 Hgb 10.4 L (12.5-18.0) gm/dl Hct 32.3 L (42-50) % MCV 94.7 (78-100) fl MCH 30.5 (26-32) pg MCHC 32.2 (32-36) g/dl RDW 12.8 (11.5-14.0) % Plt Count 316 (150-450) K/mm3 MPV 9.0 (7.5-11.0) fl Segmented Neutrophils 81 H (36.-66.) % Lymphocytes (Manual) 11 L (24-44) % Monocytes (Manual) 7 (0.0-12.0) % Eosinophils (Manual) 1 (0.00-3.0) % Platelet Estimate NORMAL (NORMAL) RBC Morphology ABNORMAL Anisocytosis 1+ Sodium (137-145) mmol/L Potassium (3.5-5.1) mmol/L Chloride (98-107) mmol/L Carbon Dioxide (22-30) mmol/L Anion Gap (5-15) MEQ/L BUN (9-20) mg/dL Creatinine (0.66-1.25) mg/dL Estimated GFR ML/MIN Glucose (74-106) mg/dL POC Glucometer 119 H 145 H (74 to 106) mg/dL Calcium (8.4-10.2) mg/dL Total Bilirubin (0.2-1.3) mg/dL AST (17-59) U/L ALT (0-50) U/L Alkaline Phosphatase (38-126) U/L Serum Total Protein (6.3-8.2) g/dL Albumin (3.5-5.0) g/dL 10/29/20 10/29/20 10/29/20 Range/Units 05:09 07:13 11:31 WBC (4.0-10.5) K/mm3 RBC (4.1-5.6) M/mm3 Hgb (12.5-18.0) gm/dl Hct (42-50) % MCV (78-100) fl MCH (26-32) pg MCHC (32-36) g/dl RDW (11.5-14.0) % Plt Count (150-450) K/mm3 MPV (7.5-11.0) fl Segmented Neutrophils (36.-66.) % Lymphocytes (Manual) (24-44) % Monocytes (Manual) (0.0-12.0) % Eosinophils (Manual) (0.00-3.0) % Platelet Estimate (NORMAL) RBC Morphology Anisocytosis Sodium 137 (137-145) mmol/L Potassium 3.9 (3.5-5.1) mmol/L Chloride 109 H (98-107) mmol/L Carbon Dioxide 21 L (22-30) mmol/L Anion Gap 10.6 (5-15) MEQ/L BUN 17 (9-20) mg/dL Creatinine 0.63 L (0.66-1.25) mg/dL Estimated GFR > 60.0 ML/MIN Glucose 175 H (74-106) mg/dL POC Glucometer 162 H 190 H (74 to 106) mg/dL Calcium 8.2 L (8.4-10.2) mg/dL Total Bilirubin 0.70 (0.2-1.3) mg/dL AST 28 (17-59) U/L ALT 21 (0-50) U/L Alkaline Phosphatase 65 (38-126) U/L Serum Total Protein 5.2 L (6.3-8.2) g/dL Albumin 2.7 L (3.5-5.0) g/dL Multi-Disciplinary Progress Notes: Multi-Disciplinary Progress Notes 10/28/20 12:15 Case Management Note by Danielle Swann S/W PATIENT THIS AM- HE CONTINUES TO DENY ANY NEEDS AT TIME OF DC. HE REPORTS HIS SPOUSE IS RETIRED AND WILL BE AROUND TO HELP HIM NEEDED Initialized on 10/28/20 12:15 - END OF NOTE Assessment/Plan (1) Acute appendicitis with rupture Current Visit: Yes Status: Acute Assessment & Plan: On zosyn, post-op. Doing well on full liquids. Still having quite a bit of drainage around the wound. Code(s): K35.32 - ACUTE APPENDICITIS WITH PERF AND LOC PERITONITIS, W/O ABSCS (2) Diabetes mellitus Current Visit: Yes Status: Acute Qualifiers: Diabetes mellitus type: type 2 Diabetes mellitus adjunct faculty for medical terminology insulin use: without adjunct faculty for medical terminology use Diabetes mellitus complication status: without complication Qualified Code(s): E11.9 - Type 2 diabetes mellitus without complications Code(s): E11.9 - TYPE 2 DIABETES MELLITUS WITHOUT COMPLICATIONS (3) HTN (hypertension) Current Visit: Yes Status: Acute Qualifiers: Hypertension type: essential hypertension Qualified Code(s): I10 - Essential (primary) hypertension Assessment & Plan: added hydralazine prn. Code(s): I10 - ESSENTIAL (PRIMARY) HYPERTENSION
[2020-10-29] MEDS ORDERED: DULCOLAX 5 MG PO PRN (16:15)
[2020-10-29] MEDS: Apresoline 25 MG TABLET PO PRN (23:54)
[2020-10-30] MEDS: TORAdol 30 mg Injection IV PRN ×2 (00:06→13:02)
[2020-10-30] MEDS: Zosyn 3.375 GM Vial 3.375 GM in Sodium Chloride 100ML MINI-BAG PLUS 100 ML IV SCH ×2 (05:43→11:51)
[2020-10-30 08:39] VITALS: O2SAT 95
--- NOTE | 2020-10-30 08:50 | PCM.NOTE ---
Date and Time: 10/30/20 0849 Subjective Assessment: patient is tolerating a regular diet, pain is well controlled and minimal. he has had a bowel movement and passing flatus. still has significant drainage around CRISTIAN tube soaking dressings overnight Objective Exam General Appearance: no apparent distress, alert Wound Assessment: Skin/Wound Assessment Wound/Incision Assessment Start: 10/24/20 17:19 Text: Status: Active Freq: Q6H Protocol: Document 10/30/20 08:00 COMFORT (Rec: 10/30/20 08:36 COMFORT [id number]) Wound/Incision Assessment Right Upper Abdomen Wound Assessment Shift Assessment Wound Type Incision Wound Stage Non Pressure Wound Dressing Status Reinforced,Changed Drainage Amount Moderate Drainage Description Serosanguineous Drainage Odor None/Absent General Appearance Draining Primary Dressing Absorbant Pad Secondary Dressing ABD Comment DRESSINGS CLEAN DRY AND INTACT Anterior Abdomen Drain Type CRISTIAN drain Drainage Description Serosanguineous Odor None/Absent Drainage Amount (ml) 15 Wound Photo Photo Taken No Respiratory Exam: normal breath sounds, lungs clear, No respiratory distress Cardiovascular Exam: regular rate/rhythm, normal heart sounds Gastrointestinal/Abdomen Exam: soft, other (dressing with some drainage present, serosang. fluid in CRISTIAN) Extremity Exam: normal inspection, normal range of motion OBJECTIVE DATA Vital Signs: Vital Signs - 24 hr Temp Pulse Resp BP Pulse Ox 10/30/20 08:00 98.9 F 78 22 165/83 95 10/30/20 07:42 92 L 10/30/20 04:00 98.0 F 82 18 174/85 93 L 10/30/20 00:57 90 161/77 90 L 10/30/20 00:00 98.3 F 69 17 182/87 93 L 10/29/20 20:06 90 L 10/29/20 20:05 98.2 F 70 18 168/79 94 L 10/29/20 16:00 99.3 F 68 20 179/84 93 L 10/29/20 12:00 97.7 F 73 20 180/81 96 Pain Assessment - Last Documented Pain Intensity 3 Pain Scale Used 0-10 Pain Scale Intake and Output: Intake & Output 10/27/20 10/28/20 10/29/20 10/30/20 11:59 11:59 11:59 11:59 Intake Total 3169 0480 1912 2735 Output Total 1615 1380 1375 885 Balance 1552 1376 258 8426 Weight 83.915 kg Lab Results: Lab Results-Last 24 Hours 10/29/20 10/29/20 10/29/20 Range/Units 11:31 16:34 21:07 POC Glucometer 190 H 166 H 147 H (74 to 106) mg/dL 10/30/20 Range/Units 07:59 POC Glucometer 147 H (74 to 106) mg/dL Multi-Disciplinary Progress Notes: Multi-Disciplinary Progress Notes 10/29/20 12:02 Case Management Note by Danielle Swann REVIEWED CHART- PATIENT CONTINUES TO REQUIRE ACUTE CARE AT THIS TIME. WILL CONTINUE TO FOLLOW Initialized on 10/29/20 12:02 - END OF NOTE Assessment/Plan (1) Acute appendicitis with rupture Current Visit: Yes Status: Acute Assessment & Plan: on zosyn, progressing well. home when ok with surgery. Code(s): K35.32 - ACUTE APPENDICITIS WITH PERF AND LOC PERITONITIS, W/O ABSCS
[2020-10-30] MEDS: Zestril 20 MG PO SCH (09:48)
[2020-10-30] MEDS: PROTONIX 40 MG IV IV SCH (09:48)
[2020-10-30] MEDS: HUMALOG SQ PRN (12:40)
[2020-10-30] MEDS: Apresoline 25 MG TABLET PO PRN (13:02)
[2020-10-30 13:11] VITALS: BP 187/88; PULSE 73
--- NOTE | 2020-10-30 16:14 | PCM.DS ---
Discharge Summary Date of Admission: 10/24/20 16:15 Admitting Physician: MAREK WU Primary Care Provider: MARKE WU Allergies Allergies No Known Drug Allergies Allergy (Unverified 10/24/20 09:03) Hospital Summary - Hospital Course Hospital Course: patient was admitted after ct showed appendicitis, went to surgery the day he arrived and appendix was ruptured with significant pus in the peritoneal cavity. surgery by Dr Friedman and was on zosyn, progressed well and tolerating po intake and bowels were moving and passing flatus. his pain is well controlled and he is able to ambulate with no difficulty. - Vitals & Intake/Output Vital Signs: Vital Signs Temperature 98.1 F 10/30/20 12:00 Pulse Rate 73 10/30/20 12:00 Respiratory Rate 24 10/30/20 12:00 Blood Pressure 187/88 10/30/20 12:00 O2 Sat by Pulse Oximetry 95 10/30/20 12:00 Intake & Output: Intake & Output 10/28/20 10/29/20 10/30/20 10/31/20 11:59 11:59 11:59 11:59 Intake Total 2630 1912 2735 Output Total 1380 1375 885 Balance 0317 832 1450 Weight 83.915 kg - Lab Result Diagrams: 10/29/20 05:09 10/29/20 05:09 Lab Results-Last 24 Hrs: Lab Results-Last 24 Hours 10/29/20 10/29/20 10/30/20 Range/Units 16:34 21:07 07:59 POC Glucometer 166 H 147 H 147 H (74 to 106) mg/dL 10/30/20 Range/Units 12:06 POC Glucometer 194 H (74 to 106) mg/dL Micro Results-Entire Visit: Microbiology 10/24/20 14:49 Aerobic Culture - Final Abdominal Fluid Aerobic Culture Result 1 - Final Aerobic Bacterial Sensitivity - Final Anaerobic Culture - Final Anaerobic Culture - Final Accuchecks Date 10/29/20 - Procedures and Test Procedures and Tests throughout Hospitalization: Therapy Orders & Screens 10/24/20 06:42 Oxygen Nasal Cannula 2 lpm Comment: 10/26/20 21:03 Incentive Spirometry TID Comment: Diagnosis: APPENDICITIS WITH RUPTURE Discharge Exam General Appearance: no apparent distress, alert Respiratory Exam: normal breath sounds, lungs clear, No respiratory distress Cardiovascular Exam: regular rate/rhythm, normal heart sounds Gastrointestinal/Abdomen Exam: soft, normal bowel sounds, other (drainage Serosang in CRISTIAN and around tube present.) Wound Assessment: Skin/Wound Assessment Wound/Incision Assessment Start: 10/24/20 17:19 Text: Status: Active Freq: Q6H Protocol: Document 10/30/20 14:00 [id number] (Rec: 10/30/20 14:07 COMFORT [id number]) Wound/Incision Assessment Right Upper Abdomen Wound Assessment Shift Assessment Wound Type Incision Wound Stage Non Pressure Wound Dressing Status Reinforced,Changed Drainage Amount Moderate Drainage Description Serosanguineous Drainage Odor None/Absent General Appearance Draining Primary Dressing Absorbant Pad Secondary Dressing ABD Comment DRESSINGS CLEAN DRY AND INTACT Anterior Abdomen Drain Type CRISTIAN drain Drainage Description Serosanguineous Odor None/Absent Wound Photo Photo Taken No Final Diagnosis/Problem List - Final Discharge Diagnosis/Problem (1) Acute appendicitis with rupture Current Visit: Yes Status: Acute Code(s): K35.32 - ACUTE APPENDICITIS WITH PERF AND LOC PERITONITIS, W/O ABSCS - Discharge Disposition: Home, Self-Care Condition: Stable Prescriptions: New Hydrocodone/Acetaminophen [Hydrocodone-Acetamin 5-325 mg] 1 tab PO Q4HPRN PRN #20 tablet MDD 6 PRN Reason: Pain Amox Tr/Potass Clav. 875 mg [Augmentin 875-125 Tablet] 1 each PO BID #14 tablet Continue lisinopriL [Lisinopril] 20 mg PO DAILY Naproxen Sodium [Aleve] 440 mg PO BID Metformin HCl [Glucophage] 1,000 mg PO BID Esomeprazole Magnesium [Nexium] 40 mg PO DAILY Atorvastatin Calcium 20 mg PO DAILY Instructions: Nuno-Harris Drain, Appendectomy, Laparoscopic Surgery (DC) Follow up with: MAREK WU MD [Primary Care Provider] - 11/08/20 9:45 am FRANCO FRIEDMAN [ACTIVE STAFF] - 11/05/20 2:00 pm Forms: Discharge Instructions
== END 2020-10-30 16:30 | disposition home or self-care (01) | DRG 340 ==
LOC: ED 01:54 → MED SURG 08:52 → OBSVTOIN 16:15
PROVIDERS: ADMIT Family Medicine; ATTEND Family Medicine
PROC: 0DTJ4ZZ Resection of Appendix, Percutaneous Endoscopic Approach (ICD-10-PCS; principal; 2020-10-24)
DX: K35.32 Acute appendicitis with perforation, localized peritonitis, and gangrene, without abscess (principal); E11.9 Type 2 diabetes mellitus without complications; I10 Essential (primary) hypertension; Z20.828 Contact with and (suspected) exposure to other viral communicable diseases; Z79.899 Other long term (current) drug therapy
CPT/HCPCS: 0241U; 36000; 36415; 74177; 80053; 81001; 82150; 82947; 83036; 83690; 83735; 84484; 85025; 87070; 87075; 88304; 93005; 94760; 94762; 96365; 96374; 96375; 96376; 99140; 99285; J0330; J0694; J1170; J1817; J1885; J2250; J2405; J2704; J3010; A9270-GY